=== PATIENT | male | born 1965 | race Caucasian/White ===

== ENCOUNTER 2019-12-24 15:23 | Emergency (ER) | payer SELFPAY ==
--- NOTE | 2019-12-24 15:35 | ED_ITS ---
Documented by User: ABDIEL Briseno 12/24/19 16:24 HPI - Back Pain/Injury General: Chief Complaint: Back Pain/Injury Stated Complaint: BACK PAIN Time Seen by Provider: 12/24/19 15:35 History of Present Illness: HPI Narrative: Patient is a 54-year-old male who comes in to the ED with thoracic back pain. Patient states that he is been having this pain for about 3 months now. It is becoming more acute is more severe. He states it's difficult to get comfortable in any position even when lying down. 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 He also stated that he had a fall from a 6-8 feet high several years ago. For that fall, patient states he landed on the middle of his back pain ever seek any medical attention after that injury. He describes the pain starting from the spine radiating up into the muscles to the left and right lateral thoracic spine and up the back muscles closer to. Patient also describes muscular pain around the thoracic spine tightness and spasms. Patient does not have a PCP would like a referral for 1. Associated symptoms: Deny abdominal pain, chills, dysuria, fatigue, fever(s), hematuria, nausea or vomiting Review of Systems Const: Denies: fever, chills or fatigue Eyes: Denies: change in vision or eye discomfort ENMT: Denies: throat pain, painful swallowing, nasal discharge or nasal congestion Card: Denies: chest pain, palpitations, edema, swelling of feet/ankles, shortness of breath on exertion or shortness of breath when lying down Resp: Denies: shortness of breath, productive cough or non-productive cough GI: Denies: abdominal pain, nausea, vomiting, diarrhea, constipation or blood in stool : Denies: flank pain, difficulty urinating, painful urination or blood in urine Musc: Reports: back pain; Denies: neck pain or extremity swelling Skin/Breast: Denies: rash or new lesion Neuro: Reports: numbness in extremities; Denies: headache or weakness in extremities PFS ED PFSH: Social History Smoking and tobacco status: current every day smoker Physical Exam Narrative: EXAM NARRATIVE: Patient is a 54-year-old male who appeared comfortable and in some pain in the room. He moved into multiple positions to help ease the back pain. Const: COMMON NORMALS: oriented x3 HENMT: COMMON NORMALS: normocephalic HEAD & SCALP: normocephalic MOUTH: oral and palatal mucosa normal THROAT: posterior oropharynx normal and uvula midline Neck/C-Spine: COMMON NORMALS: supple GENERAL: Yes normal visual inspection Resp: COMMON NORMALS: normal respiratory effort, no retractions, no use of accessory muscles and clear to auscultation bilaterally AUSCULTATION: clear to auscultation bilaterally Cardio: COMMON NORMALS: regular rate, regular rhythm, S1 normal heart sound, S2 normal heart sound, no gallops, no clicks, no murmurs and peripheral pulses 2+ throughout RATE: regular rate RHYTHM: regular rhythm HEART SOUNDS: S1 normal and S2 normal PERIPHERAL PULSES: pulses 2+ throughout GI: COMMON NORMALS: normal to inspection, nondistended, normoactive bowel sounds, soft to palpation, non-tender and no masses PALPATION: Yes soft : COMMON NORMALS: Yes no CVA tenderness BLADDER/KIDNEY EXAM: Yes no CVA tenderness Back/Pelvis: COMMON NORMALS: no CVA tenderness THORACIC SPINE/UPPER BACK: Yes thoracic spinal tenderness and Yes paraspinal muscle tenderness Extremity: COMMON NORMALS: normal to inspection Neuro: COMMON NORMALS: oriented x3 and moves all extremities Skin: COMMON NORMALS: no rashes or lesions noted GENERAL SKIN EXAM: no rashes or lesions noted and dry skin Course Vital Signs: Vital signs: Vital Signs Temperature 98.2 F 12/24/19 17:56 Pulse Rate 60 12/24/19 17:56 Respiratory Rate 18 12/24/19 17:56 Blood Pressure 122/78 12/24/19 17:56 Pulse Oximetry 98 12/24/19 17:56 Discharge Plan Discharge Patient Disposition: Home, Self-Care Clinical Impression: Thoracic back pain Qualifiers: Chronicity: chronic Back pain laterality: bilateral Qualified Code(s): M54.6 - Pain in thoracic spine Condition: Stable Prescriptions: New Robaxin-750 750 mg tablet 750 mg PO Q6H Qty: 20 RF: 0 ibuprofen 800 mg tablet 800 mg PO Q8H Qty: 30 RF: 0 Discharge Orders: Discharge Order (Routine); Ordered 12/24/19 Ordered By: Jorge Alberto Bauer Referrals: Kyler Killian, CURATOR OF EDUCATION-C [Primary Care Provider] - Discharge Diet: Regular Discharge Activity: Increase activity as tolerated Patient Instructions: Back Pain (ED) Activity Restrictions/Additional Instructions: I placed a referral for a primary care physician for you. Somebody should be calling you to set up an appointment within the next several days. Take Robaxin at night before bed to help with back pain and comfort while sleeping. Robaxin can make you drowsy so be careful when taking it. Take ibuprofen as prescribed. Discharge Date/Time: 12/24/19 17:50 Coding Level of Care Code ED Childhood Development Teacher for Chg Fwd Exam Detailed Documented by User: YOLANDA Ferrari 12/24/19 19:16 HPI - Back Pain/Injury General: Chief Complaint: Back Pain/Injury Stated Complaint: BACK PAIN Time Seen by Provider: 12/24/19 15:35 PFSH ED PFSH: Social History Smoking and tobacco status: current every day smoker Course Vital Signs: Vital signs: Vital Signs Temperature 98.2 F 12/24/19 17:56 Pulse Rate 60 12/24/19 17:56 Respiratory Rate 18 12/24/19 17:56 Blood Pressure 122/78 12/24/19 17:56 Pulse Oximetry 98 12/24/19 17:56 Discharge Plan Discharge Patient Disposition: Home, Self-Care Clinical Impression: Thoracic back pain Qualifiers: Chronicity: chronic Back pain laterality: bilateral Qualified Code(s): M54.6 - Pain in thoracic spine Condition: Stable Prescriptions: New Robaxin-750 750 mg tablet 750 mg PO Q6H Qty: 20 RF: 0 ibuprofen 800 mg tablet 800 mg PO Q8H Qty: 30 RF: 0 Discharge Orders: Discharge Order (Routine); Ordered 12/24/19 Ordered By: Jorge Alberto Bauer Referrals: Kyler Killian FNP-C [Primary Care Provider] - Discharge Diet: Regular Discharge Activity: Increase activity as tolerated Patient Instructions: Back Pain (ED) Activity Restrictions/Additional Instructions: I placed a referral for a primary care physician for you. Somebody should be calling you to set up an appointment within the next several days. Take Robaxin at night before bed to help with back pain and comfort while sleeping. Robaxin can make you drowsy so be careful when taking it. Take ibuprofen as prescribed. Discharge Date/Time: 12/24/19 17:50 Coding Level of Care Code ED Childhood Development Teacher for Go Fwcrystal Exam Detailed
[2019-12-24 15:41] VITALS: BP 136/81; PULSE 65; RESP 16; TEMP 36.4
[2019-12-24 15:42] VITALS: BP 136/81; PULSE 63; RESP 18; TEMP 36.4; O2SAT 98; BMI 21.2
--- NOTE | 2019-12-24 16:13 | CTR_ITS ---
PROCEDURE INFORMATION: Exam: CT Thoracic Spine Without Contrast Exam date and time: 12/24/2019 4:40 PM Age: 54 years old Clinical indication: Pain in thoracic spine; Additional info: Back pain, spinal tenderness TECHNIQUE: Imaging protocol: Computed tomography images of the thoracic spine without contrast. Total DLP: 929.6 mGy-cm Radiation optimization: All CT scans at this facility use at least one of these dose optimization techniques: automated exposure control; mA and/or kV adjustment per patient size (includes targeted exams where dose is matched to clinical indication); or iterative reconstruction. COMPARISON: No relevant prior studies available. FINDINGS: Vertebrae: Minimal rightward thoracic curvature. The vertebral body stature is normal. The facets are intact. Discs/Spinal canal/Neural foramina: The disc spaces are maintained. No spinal canal stenosis. Soft tissues: Unremarkable. CT/CT thoracic spin wo con* [id number] IMPRESSION: No acute findings. Radiation Dose CTDIVOL = (mGy): DLP = 929.6 (mGy-cm)
[2019-12-24] MEDS: ketorolac 60 mg/2 mL INJ IM (16:20)
[2019-12-24] MEDS: orphenadrine 30 mg/mL Inj 2 mL 60 MG IM (16:22)
--- NOTE | 2019-12-24 16:50 | PC.NURSE ---
During medication adm, pt states he has a rash on his neck that won't go away gradual onset since last summer that has not been evaluated by a practitioner with no relief from OTC meds. PA notified
[2019-12-24 17:56] VITALS: BP 122/78; PULSE 60; RESP 18; TEMP 36.8; O2SAT 98
--- NOTE | 2019-12-27 14:11 | DCPLANNER ---
manager scheduling had message to speak with patient about getting established with a primary care physician. manager scheduling called patient, and he stated that he did want help in getting established with a primary care physician. manager scheduling called [facility], spoke with Isha, patient was established and a follow up appointment was scheduled for , January 04, 2020 at 9:00 with KITCHEN PORTER, Usha Darby. manager scheduling called patient and informed patient of the scheduled appointment.
--- NOTE | 2020-01-17 15:37 | DCPLANNER ---
Patient did attend appointment scheduled for 01.04.20 at [facility] [place] with
== END 2019-12-24 17:50 | disposition home or self-care (01) ==
PROVIDERS: Emergency Provider Nurse Practitioner Family; Family Provider Nurse Practitioner; PCP Nurse Practitioner
DX: M54.6 Pain in thoracic spine (principal); F17.200 Nicotine dependence, unspecified, uncomplicated
CPT/HCPCS: 72128; 96372; 99281; 99283; J1885; J2360

== ENCOUNTER 2020-09-19 10:05 | Outpatient (CLI) | payer OTHER, SELFPAY ==
--- NOTE | 2020-09-19 10:45 | XR_ITS ---
WS: [id number] Lumbar spine, 3 views, 09/19/2020 Clinical Data: LUMBAR SPINE PAIN Comparison: None. Findings: No compression fractures or subluxation is seen. There is degenerative disc narrowing at its L5-S1.. The transverse processes and SI joints are normal. Anterior osteophyte formation is present from L3 through L5. XR/XR lumbar spine 2-3V* [id number] Impression: 1. Degenerative disc narrowing at L5-S1. 2. Anterior osteoarthritic spurring L3-L5.
--- NOTE | 2020-09-19 10:45 | XR_ITS ---
WS: [id number] Cervical spine, 3 views, 09/19/2020 Clinical Data: NECK PAIN Comparison: None. Findings: No compression fractures are seen. The disc heights are normal. There is no prevertebral so ft tissue swelling. The odontoid is unremarkable. The soft tissues of the neck and the lung apices ar e normal. There are calcifications of the anterior longitudinal ligament at C5-C6 and C6-C7. XR/XR cervical spine 3V* [id number] Impression: Minimal anterior longitudinal ligament calcifications at C5-C6 and C6-C7.
== END 2020-09-19 10:06 | disposition home or self-care (01) ==
PROVIDERS: PCP Nurse Practitioner; Visit Provider Dermatology
DX: M54.2 Cervicalgia (principal); M54.5 Low back pain
CPT/HCPCS: 72040; 72100

== ENCOUNTER 2021-02-19 08:34 | Emergency (ER) | payer MEDICAID, SELFPAY ==
[2021-02-19 08:38] VITALS: BP 152/83; PULSE 76; RESP 18; TEMP 36.7; O2SAT 97; BMI 22.8
[2021-02-19 08:47] VITALS: BP 152/83; PULSE 90; RESP 18; O2SAT 98
--- NOTE | 2021-02-19 08:47 | XR_ITS ---
WS: [id number] Portable AP upright chest, 02/19/2021 Clinical Data: cough Comparison: PA and lateral chest, 10/09/2016. Findings: The patchy opacity in the lingula has cleared. No nodules, masses or effusions are seen. Th ere is no pneumonia or pneumothorax. The pulmonary vascularity is unremarkable. The diaphragms are fl attened. XR/XR chest 1V portable [id number] Impression: 1. Clearing of lingular opacity. 2. Hyperinflation.
--- NOTE | 2021-02-19 08:53 | ED_ITS ---
HPI - URI/Sore Throat General: Chief Complaint: Upper Respiratory Infection Stated Complaint: SINUS PAIN Time Seen by Provider: 02/19/21 08:45 History of Present Illness: HPI Narrative: Patient comes here complain about allergy type symptoms. Said he had a sore throat for 2 3 days and has a cough also. Patient said he has had watery eyes scratchy roof of the mouth ears itching for the last week. Not seen his primary care provider yet. MD elicited complaint: cough, sore throat, rhinorrhea and nasal congestion Pertinent past history: seasonal allergies Onset (ago): day(s) Consistency: constant Description of mucous: watery Able to tolerate fluids by mouth: Yes Exacerbating factors: nothing Associated symptoms: Reports no associated symptoms; Deny abdominal pain, chills, chest pain, fever(s), headache(s), nasal congestion, nausea or vomiting Review of Systems Const: Denies: fever(s), chills or body aches Eyes: Reports: increased production of tears; Denies: change in vision or blurry vision ENMT: Reports: throat pain and other (Itchy throat and roof of mouth); Denies: nasal congestion Card: Denies: chest pain or dyspnea on exertion Resp: Reports: non-productive cough; Denies: dyspnea or productive cough GI: Denies: abdominal pain, nausea or vomiting : Denies: difficulty urinating Musc: Denies: extremity pain Skin/Breast: Denies: rash Neuro: Denies: headache(s) Psych: Denies: anxiety or depression Jey/Lymph: Denies: easy bruising PFSH ED PFSH: Social History Smoking and tobacco status: current every day smoker cigarettes Packs smoked per day: 1 Alcohol intake: never History of recent travel: No Physical Exam Const: COMMON NORMALS: no acute distress, average body habitus and patient oriented x3 HENMT: COMMON NORMALS: normocephalic and TM's normal bilaterally HEAD & SCALP: normal to inspection and normocephalic FACE & SINUS: normal facial exam TYMPANIC MEMBRANE: TM's normal bilaterally MOUTH: Normal oral and palatal mucosa present THROAT: posterior oropharynx abnormal (Slightly red) Eye: COMMON NORMALS: conjunctivae normal GENERAL EYE: appearance normal, both eyes and all related structures CONJUNCTIVA: Yes conjunctivae normal Neck/C-Spine: COMMON NORMALS: no JVD Chest: COMMONS NORMALS: normal inspection of the chest Resp: COMMON NORMALS: normal respiratory effort and clear to auscultation b ilaterally AUSCULTATION: clear to auscultation bilaterally Cardio: COMMON NORMALS: no JVD, regular rate and regular rhythm RATE: regular rate RHYTHM: regular rhythm GI: COMMON NORMALS: Normal to inspection, nondistended, normoactive bowel sounds present Extremity: COMMON NORMALS: normal to inspection and full ROM Neuro: COMMON NORMALS: patient oriented x3 Course Vital Signs: Vital signs: Vital Signs Temperature 98.0 F 02/19/21 08:38 Pulse Rate 90 02/19/21 08:47 Respiratory Rate 18 02/19/21 08:47 Blood Pressure 152/83 02/19/21 08:47 Pulse Oximetry 98 02/19/21 08:47 Discharge Plan Discharge Prescriptions: No Action ibuprofen 800 mg tablet 800 mg PO Q8H Qty: 90 RF: 0 methylprednisolone [Medrol (Ezra)] 4 mg tablets,dose pack See Rx Instructions PO PER PKG DIR Qty: 21 RF: 0 Robaxin-750 750 mg tablet 750 mg PO Q6H Qty: 20 RF: 0 Coding Level of Care Code ED Badger Distiller Operator for Chg Abrahan
[2021-02-19] MEDS: predniSONE 10 mg Tablet PO (09:11)
[2021-02-19] MEDS: loratadine 10 mg Tablet PO (09:16)
[2021-02-19 09:55] LABS: Rapid Strep A Test Negative (Negative)
[2021-02-19 10:24] VITALS: BP 135/78; PULSE 98; O2SAT 97
== END 2021-02-19 10:25 | disposition home or self-care (01) ==
PROVIDERS: Emergency Provider Nurse Practitioner Family
DX: J02.9 Acute pharyngitis, unspecified (principal); F17.210 Nicotine dependence, cigarettes, uncomplicated
CPT/HCPCS: 71045; 87081; 87880; 99283; J7512

== ENCOUNTER 2021-02-27 17:15 | Outpatient (CLI) | payer MEDICAID, SELFPAY ==
--- NOTE | 2021-02-27 18:10 | MR_ITS ---
WS: [id number] MRI THORACIC SPINE WITHOUT CONTRAST TECHNIQUE: Sagittal T1, T2 and STIR imaging. Axial T2 imaging. Noncontrast imaging obtained. CLINICAL INFORMATION: CHRONIC BILATERAL THORACIC BACK PAIN COMPARISON: CT December 24, 2019 FINDINGS: Mild thoracic curve. No acute compression. No high-grade central canal stenosis. Cord signal is abdon l. Mild to moderate facet arthropathy in the lower thoracic spine. Mild bilateral foraminal narrowing T10-T11 and T11-T12. Normal caliber thoracic aorta. Adrenal glands are normal. MR/MR thoracic spin wo con* [id number] IMPRESSION: 1. Mild thoracic curve. No acute compression. No high-grade central canal sten osis. 2. Cord signal is normal. 3. Mild to moderate facet arthropathy in the lower thoracic spine. 4. Mild bilateral foraminal narrowing T10-11 and T11-T12.
== END 2021-02-27 17:16 | disposition home or self-care (01) ==
LOC: RADSHAW 17:19
PROVIDERS: Visit Provider Family Medicine
DX: M47.814 Spondylosis without myelopathy or radiculopathy, thoracic region (principal)
CPT/HCPCS: 72146

== ENCOUNTER → 2021-03-17 08:26 | Outpatient (BNVA) | payer MEDICAID, SELFPAY | PROVIDERS: PCP Physician Assistant; Referring Provider Family Medicine; Visit Provider Anesthesiology Pain Medicine | DX: G89.29 Other chronic pain (principal); M47.814 Spondylosis without myelopathy or radiculopathy, thoracic region; F17.210 Nicotine dependence, cigarettes, uncomplicated | CPT/HCPCS: 99205 ==

== ENCOUNTER → 2021-04-21 08:26 | Outpatient (BNVA) | payer MEDICAID, SELFPAY | PROVIDERS: PCP Physician Assistant; Visit Provider Anesthesiology Pain Medicine | DX: G89.29 Other chronic pain (principal); M47.814 Spondylosis without myelopathy or radiculopathy, thoracic region | CPT/HCPCS: 99214 ==

== ENCOUNTER → 2021-05-19 09:57 | Outpatient (BNVA) | payer MEDICAID, SELFPAY | PROVIDERS: PCP Physician Assistant; Visit Provider Anesthesiology Pain Medicine | DX: G89.29 Other chronic pain (principal); M54.12 Radiculopathy, cervical region; M47.814 Spondylosis without myelopathy or radiculopathy, thoracic region; R42 Dizziness and giddiness; F17.210 Nicotine dependence, cigarettes, uncomplicated; Z79.891 Long term (current) use of opiate analgesic | CPT/HCPCS: 99214 ==

== ENCOUNTER 2021-06-16 16:16 | Outpatient (CLI) | payer MEDICAID, SELFPAY ==
--- NOTE | 2021-06-16 16:45 | MR_ITS ---
WS: [id number] MRI CERVICAL SPINE NONCONTRAST TECHNIQUE: Sagittal T1, T2 and STIR imaging. Axial T2, gradient, and fiesta imaging. CLINICAL INFORMATION: M54.12 - Radiculopathy, cervical region COMPARISON: None. FINDINGS: Slight exaggeration of the normal cervical lordosis. No high-grade central canal narrowing. Cord sign al is normal. Mild disc osteophyte complexes at C5-C6 and C6-C7. C2-C3: Normal. C3-C4: Mild disc bulging and osteophytic ridging. Mild left and no significant right foraminal narrow ing. Spinal canal is patent. Mild facet arthropathy. C4-C5: Mild disc osteophyte complex with endplate ridging. Moderate left greater than right facet art hropathy. Mild periarticular edema. Moderate bilateral foraminal narrowing left greater than right. C5-C6: Disc osteophyte complex with endplate ridging. Moderate facet arthropathy. Spinal canal is pat ent. Mild left and no significant right foraminal narrowing. C6-C7: Disc osteophyte complex eccentric to the left with mild central canal stenosis. Moderate to se jennifer left and mild to moderate right bony foraminal narrowing. Moderate facet arthropathy. C7-T1: No significant disc bulging. Spinal canal and foramen are patent. Retention cyst right maxillary sinus measuring 2.5 cm. Visualized brain stem structures: Normal. Prevertebral soft tissues: Normal. MR/MR cervical spin wo con* [id number] IMPRESSION: 1. Slight exaggeration of the normal cervical lordosis. Cord signal is normal. 2. Left eccentric disc osteophyte complex C6-7 with mild central canal stenosi s and moderate to severe left bony foraminal narrowing. Recommend correlation f or left C7 nerve root symptoms. 3. Mild to moderate bony foraminal narrowing left C4-5, left C5-6. 4. Asymmetric moderate left C4-5 facet arthropathy with degenerative edema.
== END 2021-06-16 16:17 | disposition home or self-care (01) ==
LOC: RADSHAW 16:19
PROVIDERS: PCP Physician Assistant; Visit Provider Anesthesiology Pain Medicine
DX: M54.12 Radiculopathy, cervical region (principal); M47.812 Spondylosis without myelopathy or radiculopathy, cervical region; M25.78 Osteophyte, vertebrae
CPT/HCPCS: 72141

== ENCOUNTER → 2021-07-02 09:06 | Outpatient (BNVA) | payer MEDICAID, SELFPAY | PROVIDERS: PCP Physician Assistant; Visit Provider Anesthesiology Pain Medicine | DX: G89.29 Other chronic pain (principal); M47.814 Spondylosis without myelopathy or radiculopathy, thoracic region | CPT/HCPCS: 99214 ==

== ENCOUNTER → 2021-09-02 13:25 | Outpatient (BNVA) | payer MEDICAID, SELFPAY | PROVIDERS: PCP Physician Assistant; Visit Provider Anesthesiology Pain Medicine | DX: G89.29 Other chronic pain (principal); M47.814 Spondylosis without myelopathy or radiculopathy, thoracic region; M54.50 Low back pain, unspecified; M54.2 Cervicalgia | CPT/HCPCS: 99213 ==

== ENCOUNTER 2022-07-12 10:36 | Emergency (ER) | payer MEDICARE, MEDICAID, SELFPAY ==
[2022-07-12 11:36] VITALS: BP 133/73; PULSE 66; RESP 18; TEMP 36.1; O2SAT 98; BMI 23.6
--- NOTE | 2022-07-12 11:43 | ED_ITS ---
HPI - Eye Problem General: Chief complaint: Eye Problems Stated complaint: Vision problems Time Seen by Provider: 07/12/22 11:39 History of Present Illness: 56 yo male patient presents with bilateral eye matting and crusting. Pt states he woke up this am with crusting and matting to his eyelids. Pt denies any vision changes or eye pain. Pt states it doesnt hurt it just was matted and was worried he has pink eye. Pt denies any fever. Associated symptoms: Denies fever(s), headache(s), nausea, neck pain or vomiting Review of Systems Const: Denies: fever(s), chills, body aches, change in appetite, change in weight, fatigue, malaise or diaphoresis Eyes: Reports: eye discharge; Denies: change in vision, blurry vision, blind spots, photophobia, eye discomfort, eye redness, floaters or seeing flashes ENMT: Denies: throat pain, uvular edema, enlarged tonsils, odynophagia, hoarseness, mouth pain, swelling of lips/tongue, oral sores, bleeding gums, dental pain, dry mouth, ear or mastoid pain, ear discharge, change in hearing, tinnitus, disequilibrium, nasal discharge, nasal congestion, post nasal drip or sinus pain Card: Denies: chest pain, palpitations, irregular heart rhythm, edema, swelling of feet/ankles, lightheadedness, syncope, pre-syncope, dyspnea on exertion, orthopnea, leg pain with exertion or acrocyanosis Resp: Denies: dyspnea, productive cough, non-productive cough, wheezing, stridor, pain on inspiration, change in phlegm color, hemoptysis or chest congestion GI: Denies: abdominal pain, nausea, vomiting, hematemesis, dysphagia, diarrhea, constipation, GI cramping, change in bowel habits or rectal pain : Denies: flank pain, dysuria, urinary frequency, urinary urgency, urinary hesitancy or hematuria Musc: Denies: neck pain, back pain, extremity pain, extremity swelling, joint pain, joint swelling, joint redness, joint warmth or deformity Skin/Breast: Denies: rash, pruritus, erythema, sores, new lesions, changes in skin color or dry skin Neuro: Denies: headache(s), numbness in extremities, weakness in extremities, sensory changes, lack of coordination, difficulty walking, frequent falls, dizziness, vertigo, confusion, behavioral changes, Slurred speech present, difficulty communicating thoughts or seizure-like activity Psych: Denies: anxiety, depression, suicidal ideation or homicidal ideation Endo: Denies: polyuria, polydipsia, tired all the time, cold intolerance, excessive sweating, flushing, hot flashes or heat intolerance Jey/Lymph: Denies: easy bruising, easy bleeding, petechiae, purpura, enlarged lymph nodes or tender lymph nodes All/Imm: Denies: urticaria, throat swelling, tongue swelling, facial swelling, acute wheezing or itchy eyes PFSH ED PFSH: Social History Alcohol intake: never History of recent travel: No Physical Exam Const: COMMON NORMALS: no acute distress, average body habitus, patient oriented x3, no limitations, healthy appearing, alert and well nourished HENMT: THROAT: no uvular edema Eye: COMMON NORMALS: Equal, round and reactive pupils present, EOMs intact bilaterally, no scleral icterus, no papilledema and normal visual ortega by confrontation EYELID: other (crusting noted to bilateral lower lids) CONJUNCTIVA: Yes conjunctival abnormal (injected bilateral) PUPIL: Yes Equal, round and reactive pupils present DIRECT OPHTHALMOSCOPY: Yes no papilledema Lymph: LYMPHATIC: no lymphadenopathy noted and no lymphedema noted Resp: COMMON NORMALS: normal respiratory effort, No retractions, No use of accessory muscles, clear to auscultation bilaterally and percussion normal AUSCULTATION: clear to auscultation bilaterally PERCUSSION: percussion normal Cardio: COMMON NORMALS: regular rate and regular rhythm RATE: regular rate RHYTHM: regular rhythm Neuro: COMMON NORMALS: patient oriented x3, CN's II-XII intact bilaterally, moves all extremities, no focal motor deficits, no sensory deficits noted and gait normal SENSORIUM/ORIENTATION: Yes alert Skin: COMMON NORMALS: no rashes or lesions noted, no wounds, turgor normal, no jaundice, no petechiae and no mottling GENERAL SKIN EXAM: no rashes or lesions noted and turgor normal Course Vital Signs: Vital signs: Vital Signs Temperature 96.9 F L 07/12/22 11:36 Pulse Rate 66 09/04/22 11:36 Respiratory Rate 18 07/12/22 11:36 Blood Pressure 133/73 07/12/22 11:36 Pulse Oximetry 98 07/12/22 11:36 Oxygen Delivery Me thod 07/12/22 11:36 MDM - Eye Problem Medical Decision Making Patient is well appearing non toxic and in no acute distress. 56 yo male patient presents with bilateral eye matting and crusting. Pt states he woke up this am with crusting and matting to his eyelids. Pt denies any vision changes or eye pain. Pt states it doesnt hurt it just was matted and was worried he has pink eye. Pt denies any fever. Patient's findings are c/w conjunctivitis. Pt has no pain or vision changes or headaches. Pt does not feel like he has anything in his eyes. Will start on erythromycin ointment and have follow up with Opthamology. Differential Diagnosis Likely corneal abrasion, conjunctivitis, acute iritis, hyphema, periorbital cellulitis, subconjunctival hemorrhage, glaucoma, corneal ulcer and ruptured globe Discharge Plan Discharge Patient Disposition: Home Clinical Impression: Bacterial conjunctivitis Condition: Stable Prescriptions: New erythromycin 5 mg/gram (0.5 %) ointment 1 applic ophthalmic (eye) TID 7 Days Qty: 3.5 0RF No Action cyclobenzaprine 10 mg tablet 10 mg PO BID Qty: 60 0RF meloxicam 15 mg tablet 15 mg PO DAILY Qty: 30 0RF gabapentin 300 mg capsule 300 mg PO TID Qty: 90 0RF Claritin 10 mg tablet 10 mg PO DAILY Qty: 20 0RF Discharge Orders: Discharge ED (Routine); Ordered 07/12/22 Ordered By: Olena Gallardo Discharge Diet: Advance as tolerated Discharge Activity: Resume usual activity Patient Instructions: Opioid Safety Activity Restrictions/Additional Instructions: Plesae follow up with Opthlamology tomorrow. We will call you with appointment info Return to ER with any worsening of symptoms such as vision changes, headaches or any other concerns Coding Level of Care Code ED Torch Straightener And Heater for Go Gauthier
== END 2022-07-12 11:55 | disposition home or self-care (01) ==
PROVIDERS: Emergency Provider Registered Nurse
DX: H10.9 Unspecified conjunctivitis (principal)
CPT/HCPCS: 99283

== ENCOUNTER → 2022-12-22 09:36 | Outpatient (BNVA) | payer MEDICARE, MEDICAID, SELFPAY | PROVIDERS: Visit Provider Anesthesiology Pain Medicine | DX: G89.29 Other chronic pain (principal); M47.814 Spondylosis without myelopathy or radiculopathy, thoracic region; M47.812 Spondylosis without myelopathy or radiculopathy, cervical region | CPT/HCPCS: 72050; 72072; 99214 ==

== ENCOUNTER → 2023-01-06 17:01 | Outpatient (BNVA) | payer MEDICARE, MEDICAID, SELFPAY | PROVIDERS: PCP Family Medicine; Visit Provider Nurse Practitioner Family | DX: R63.4 Abnormal weight loss (principal) | CPT/HCPCS: 80053; 82607; 83735; 84443; 85025 ==

== ENCOUNTER 2023-01-25 07:39 | Outpatient (CLI) | payer MEDICARE, MEDICAID, SELFPAY ==
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
[2023-01-25] MEDS: iohexol 350 mg/mL 500 mL Btl (per mL) IV (09:48)
== END 2023-01-25 07:40 | disposition home or self-care (01) ==
PROVIDERS: Visit Provider Nurse Practitioner Family
DX: R63.4 Abnormal weight loss (principal)
CPT/HCPCS: 71260; 74177; Q9967

== ENCOUNTER → 2023-02-03 08:39 | Outpatient (BNVA) | payer MEDICARE, MEDICAID, SELFPAY | PROVIDERS: Visit Provider Anesthesiology Pain Medicine | DX: G89.29 Other chronic pain (principal); M54.2 Cervicalgia; M47.814 Spondylosis without myelopathy or radiculopathy, thoracic region; M79.641 Pain in right hand; M79.642 Pain in left hand | CPT/HCPCS: 99215 ==

== ENCOUNTER → 2023-03-31 14:55 | Outpatient (BNVA) | payer MEDICARE, MEDICAID, SELFPAY | PROVIDERS: Visit Provider Nurse Practitioner | DX: Z20.2 Contact with and (suspected) exposure to infections with a predominantly sexual mode of transmission (principal) | CPT/HCPCS: 87491; 87591 ==

== ENCOUNTER 2023-05-27 20:01 | Emergency (ER) | payer MEDICARE, MEDICAID, SELFPAY ==
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
[2023-05-27 20:02] VITALS: BMI 22.2
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
[2023-05-27] MEDS: iohexol 350 mg/mL 500 mL Btl (per mL) IV (20:39)
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
[2023-05-27 21:08] VITALS: BP 145/83; PULSE 86; O2SAT 98
[2023-05-27 21:18] LABS: Basophils # 0.1 10^3/uL (0.0-0.1); Basophils % 0.8 %; Eosinophils # 0.3 10^3/uL (0.0-0.8); Eosinophils % 2.8 %; Hematocrit 45.2 % (42.0-52.0); Hemoglobin 14.3 g/dL (11.7-16.6); Lymphocytes # 7.2 10^3/uL (0.8-4.8); Lymphocytes % 62.7 %; Mean Corpuscular HGB Conc 31.6 g/dL (30.0-36.0); Mean Corpuscular Hemoglobin 28.7 pg (28.0-34.0); Mean Corpuscular Volume 90.6 fl (80-94); Mean Platelet Volume 9.5 fL (7.4-10.4); Monocytes # 0.6 10^3/uL (0.2-0.9); Monocytes % 5.5 %; Nucleated Red Blood Cells % 0 %; Platelet Count 247 10^3/cmm (130-400); Red Blood Count 4.99 10^6/uL (4.1-5.3); Red Cell Distribution Width 14.2 % (12.1-15.1); White Blood Count 11.4 10^3/uL (4.0-10.0)
[2023-05-27] MEDS: tetanus-dipt-pertussis 0.5 mL SDV IM (21:18)
[2023-05-27] MEDS: lidocaine 1% INJ 10 mL (per mL) 20 ML XX (21:18)
--- NOTE | 2023-05-27 21:19 | PC.NURSE ---
LIDOCAINE ADMINISTERED BY DR. DYKES.
[2023-05-27 21:29] LABS: Alcohol Level 227 mg/dL (0-10); Anion Gap 18.7 (5-19); Blood Urea Nitrogen 10 mg/dL (6-20); Calcium 8.6 mg/dL (8.5-10.5); Carbon Dioxide 22 mmol/L (22-29); Chloride 108 mmol/L (98-107); Glomerular Filtration Rate 99.3 mL/min (90-130); Glucose 139 mg/dL (65-115); Osmolality Calculated 301 mOsm/kg (285-295); Potassium 3.7 mmol/L (3.5-5.1); Sodium 145 mmol/L (136-145)
[2023-05-27 21:30] VITALS: BP 131/79; PULSE 77; O2SAT 94
[2023-05-27 22:00] VITALS: BP 141/87; PULSE 88; O2SAT 98
[2023-05-27 23:00] VITALS: BP 160/89; PULSE 69; O2SAT 97
[2023-05-27 23:30] VITALS: BP 141/95; PULSE 84; O2SAT 94
[2023-05-28 00:51] VITALS: BP 144/93; PULSE 88; O2SAT 95
[2023-05-28 01:19] VITALS: PULSE 97; RESP 16; O2SAT 98
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
== END 2023-05-28 01:20 | disposition home or self-care (01) ==
PROVIDERS: Emergency Provider Family Medicine; PCP Nurse Practitioner Family
DX: S01.111A Laceration without foreign body of right eyelid and periocular area, initial encounter (principal); S01.81XA Laceration without foreign body of other part of head, initial encounter; S01.411A Laceration without foreign body of right cheek and temporomandibular area, initial encounter; S02.40CA Maxillary fracture, right side, initial encounter for closed fracture; S02.40DA Maxillary fracture, left side, initial encounter for closed fracture; S02.32XA Fracture of orbital floor, left side, initial encounter for closed fracture; S02.2XXA Fracture of nasal bones, initial encounter for closed fracture; F10.129 Alcohol abuse with intoxication, unspecified; Y90.7 Blood alcohol level of 200-239 mg/100 ml; F17.210 Nicotine dependence, cigarettes, uncomplicated; Y04.8XXA Assault by other bodily force, initial encounter; Z23 Encounter for immunization
CPT/HCPCS: 12015; 70450; 70486; 71260; 72125; 74177; 80048; 80307; 85025; 90471; 90715; 99285; Q9967

== ENCOUNTER → 2023-06-02 12:41 | Outpatient (BNVA) | payer MEDICARE, MEDICAID, SELFPAY | PROVIDERS: Visit Provider Otolaryngology | DX: S00.83XA Contusion of other part of head, initial encounter; S02.2XXA Fracture of nasal bones, initial encounter for closed fracture; J34.2 Deviated nasal septum; S02.40DA Maxillary fracture, left side, initial encounter for closed fracture; S02.40CA Maxillary fracture, right side, initial encounter for closed fracture; S02.31XA Fracture of orbital floor, right side, initial encounter for closed fracture; S02.32XA Fracture of orbital floor, left side, initial encounter for closed fracture; Y04.8XXA Assault by other bodily force, initial encounter | CPT/HCPCS: 99205 ==

== ENCOUNTER → 2023-06-07 10:36 | Outpatient (BNVA) | payer MEDICARE, MEDICAID, SELFPAY | PROVIDERS: Visit Provider Otolaryngology | DX: J34.2 Deviated nasal septum; F07.81 Postconcussional syndrome; S02.31XA Fracture of orbital floor, right side, initial encounter for closed fracture; S02.32XA Fracture of orbital floor, left side, initial encounter for closed fracture; S02.40DA Maxillary fracture, left side, initial encounter for closed fracture; S02.40CA Maxillary fracture, right side, initial encounter for closed fracture; S02.2XXA Fracture of nasal bones, initial encounter for closed fracture; Y04.8XXA Assault by other bodily force, initial encounter | CPT/HCPCS: 99213 ==

== ENCOUNTER → 2023-06-23 10:31 | Outpatient (BNVA) | payer MEDICARE, MEDICAID, SELFPAY | PROVIDERS: PCP Obstetrics & Gynecology; Visit Provider Psychiatry & Neurology Neurology | DX: F07.81 Postconcussional syndrome; S09.90XS Unspecified injury of head, sequela; G44.309 Post-traumatic headache, unspecified, not intractable; R42 Dizziness and giddiness; Y04.8XXS Assault by other bodily force, sequela | CPT/HCPCS: 99203 ==

== ENCOUNTER 2023-06-30 09:31 | Outpatient (CLI) | payer MEDICARE, MEDICAID, SELFPAY ==
--- NOTE | 2023-06-30 10:15 | MR_ITS ---
WS: [id number] MRI BRAIN WITH AND WITHOUT CONTRAST HISTORY: S09.90XA - Unspecified injury of head, initial encounter COMPARISON: Noncontrast CT head 05/27/2023 TECHNIQUE: Multiplanar imaging performed through the brain with MultiHance 15 ml's IV. No acute infarcts are seen. Pollard-white matter differentiation is well preserved. No susceptibility artifacts or prior lacunar infarcts. Ventricles and extra-axial spaces are normal. Clivus and pituitary gland are normal. Visualized posterior fossa and brainstem are also normal. Postcontrast images are negative for masses or vascular malformations. Dural venous sinuses are normal. Paranasal sinuses: Mild mucoperiosteal thickening throughout the paranasal sinuses. Most significant disease in the RIGHT maxillary sinus. Mastoid air cells: Bilateral mastoid air cell effusions. Calvarium and scalp: Normal. IMPRESSION: 1. Normal MRI brain with contrast. 2. No acute intracranial hemorrhage or edema. No prior infarct. No significant microvascular disease . 3. Bilateral mastoid air cell effusions.
== END 2023-06-30 09:32 | disposition home or self-care (01) ==
LOC: RAD 09:32
PROVIDERS: PCP Obstetrics & Gynecology; Visit Provider Specialist
DX: S09.90XA Unspecified injury of head, initial encounter (principal); X58.XXXA Exposure to other specified factors, initial encounter
CPT/HCPCS: 70553; A9577

== ENCOUNTER 2023-07-02 08:45 | Outpatient (CLI) | payer MEDICARE, MEDICAID, SELFPAY ==
--- NOTE | 2023-07-02 08:30 | USCV_ITS ---
Parag Darby Age: 57 Gender: M : 1965 Exam Date: 07/02/2023 09:02 Ordering Phys: Cris Metcalf MD Technologist: JAYLEN [place] [facility] [place]: [place] TRAUMA, DIZZINESS Risk Factors: Previous Vascular Surgery: Right Brachial BP: / Left Brachial BP: / Right Left Velocity (cm/s) Spectral Plaque Velocity (cm/s) Spectral Plaque Syst/Diast Broadening Syst/Diast Broadening 80.00/ 14.00 Prox CCA 126.20/ 21.00 110.20/23.10 Mid CCA 92.60 / 22.10 76.90/ 25.60 Distal CCA 78.30 / 24.30 55.20/ 17.10 Prox ICA 48.50 / 13.50 67.50/ 24.60 Mid ICA 62.80 / 22.50 74.90/ 31.60 Distal ICA 77.30 / 28.40 61.80 ECA 94.80 0.68 ICA/CCA 0.61 Antegrade Vertebral Antegrade 35.70/ 10.90 cm/s 41.20/ 16.30 cm/s Tri Subclavian Tri 75.50 80.00 CONCLUSIONS Right ICA stenosis <50%. Mild atheromatous plaque right carotid bulb/ICA. Left ICA stenosis <50%. Mild atheromatous plaque left carotid bulb/ICA. Normal antegrade Doppler flow noted in the right vertebral artery. Normal antegrade Doppler flow noted in the left vertebral artery. Carlin Irwin MD (Electronically Signed) Final Date: 02 July 2023 11:02 S
== END 2023-07-02 08:46 | disposition home or self-care (01) ==
PROVIDERS: PCP Obstetrics & Gynecology; Visit Provider Specialist
DX: S09.90XA Unspecified injury of head, initial encounter (principal); X58.XXXA Exposure to other specified factors, initial encounter; R42 Dizziness and giddiness; I65.21 Occlusion and stenosis of right carotid artery; I65.22 Occlusion and stenosis of left carotid artery
CPT/HCPCS: 93880

== ENCOUNTER 2023-07-07 13:08 | Outpatient (RCR) | payer MEDICARE, MEDICAID, SELFPAY | END 2023-07-08 23:59 | disposition home or self-care (01) | LOC: SPT 13:08 | PROVIDERS: PCP Obstetrics & Gynecology; Visit Provider Family Medicine | DX: H81.13 Benign paroxysmal vertigo, bilateral (principal) | CPT/HCPCS: 95992; 97161 ==

== ENCOUNTER 2023-07-09 06:00 | Outpatient (RCR) | payer MEDICARE, MEDICAID, SELFPAY | END 2023-08-07 23:59 | disposition home or self-care (01) | LOC: SPT 06:00 | PROVIDERS: PCP Obstetrics & Gynecology; Visit Provider Family Medicine | DX: H81.13 Benign paroxysmal vertigo, bilateral (principal) | CPT/HCPCS: 95992 ==

== ENCOUNTER → 2024-01-11 11:13 | Outpatient (BNVA) | payer MEDICARE, MEDICAID, SELFPAY | PROVIDERS: PCP Nurse Practitioner Family; Visit Provider Nurse Practitioner Family | DX: L60.8 Other nail disorders; E55.9 Vitamin D deficiency, unspecified; R73.9 Hyperglycemia, unspecified | CPT/HCPCS: 80053; 82306; 82607; 83036; 83735; 84443; 85025 ==

== ENCOUNTER → 2024-02-07 16:22 | Outpatient (BNVA) | payer MEDICARE, MEDICAID, SELFPAY | PROVIDERS: PCP Nurse Practitioner Family; Visit Provider Family Medicine | DX: Z20.2 Contact with and (suspected) exposure to infections with a predominantly sexual mode of transmission (principal) | CPT/HCPCS: 87491; 87591 ==

== ENCOUNTER 2024-05-26 06:00 | Outpatient (RCR) | payer MEDICARE, MEDICAID, SELFPAY | END 2024-06-07 23:59 | disposition home or self-care (01) | LOC: TPT 06:00 | PROVIDERS: Visit Provider Nurse Practitioner Family | DX: M54.50 Low back pain, unspecified (principal); G89.29 Other chronic pain | CPT/HCPCS: 97110; 97162 ==

== ENCOUNTER 2024-06-08 06:00 | Outpatient (RCR) | payer MEDICARE, MEDICAID, SELFPAY | END 2024-07-08 23:59 | disposition home or self-care (01) | LOC: TPT 06:00 | PROVIDERS: Visit Provider Nurse Practitioner Family | DX: M54.50 Low back pain, unspecified (principal); G89.29 Other chronic pain | CPT/HCPCS: 97110 ==

== ENCOUNTER 2024-07-09 06:00 | Outpatient (RCR) | payer MEDICARE, MEDICAID, SELFPAY | END 2024-08-07 23:59 | disposition home or self-care (01) | LOC: TPT 06:00 | PROVIDERS: Visit Provider Nurse Practitioner Family | DX: M54.50 Low back pain, unspecified (principal); G89.29 Other chronic pain | CPT/HCPCS: 97110 ==

== ENCOUNTER 2024-08-08 06:00 | Outpatient (RCR) | payer MEDICARE, MEDICAID, SELFPAY | END 2024-09-07 23:59 | disposition home or self-care (01) | LOC: TPT 06:00 | PROVIDERS: Visit Provider Nurse Practitioner Family | DX: M54.50 Low back pain, unspecified (principal); G89.29 Other chronic pain | CPT/HCPCS: 97110 ==

== ENCOUNTER 2024-10-04 06:00 | Outpatient (RCR) | payer MEDICARE, MEDICAID, SELFPAY | END 2024-10-07 23:59 | disposition home or self-care (01) | LOC: TPT 06:00 | PROVIDERS: Visit Provider Nurse Practitioner Family | DX: M54.50 Low back pain, unspecified (principal); G89.29 Other chronic pain | CPT/HCPCS: 97164 ==

== ENCOUNTER 2024-10-08 06:00 | Outpatient (RCR) | payer MEDICARE, MEDICAID, SELFPAY | END 2024-10-13 23:59 | disposition home or self-care (01) | LOC: TPT 06:00 | PROVIDERS: Visit Provider Nurse Practitioner Family | DX: M54.50 Low back pain, unspecified (principal); G89.29 Other chronic pain | CPT/HCPCS: 97110 ==

== ENCOUNTER → 2024-12-13 08:24 | Outpatient (BNVA) | payer MEDICAID, SELFPAY | PROVIDERS: Visit Provider Surgery | DX: K21.9 Gastro-esophageal reflux disease without esophagitis (principal) | CPT/HCPCS: 99204 ==

== ENCOUNTER 2025-01-04 09:36 | Day surgery (SDC) | payer MEDICARE, MEDICAID, SELFPAY ==
--- NOTE | 2025-01-04 09:52 | P.HPUD_ITS ---
Surgery/Procedure H&P Update DATE OF PROCEDURE: January 04, 2025 DATE H&P PERFORMED: 12/14/24 H&P UPDATE INFORMATION: I have reviewed H&P completed within last 30 days, I have examined patient prior to procedure, No changes to prior documentation and H&P is in [facility] [place] EMR on date indicated PLANNED PROCEDURE: Operation Date: 01/04/25 11:00 Proposed Procedures p EGD 03435, 30738, G0121, K21.9, Z12.11(Not Applicable) - Omi Ocasio MD s Colonoscopy(Not Applicable) - Omi Ocasio MD
[2025-01-04 09:58] VITALS: BP 152/83; PULSE 63; RESP 18; TEMP 36.1; O2SAT 98; BMI 25.8
[2025-01-04] MEDS: sodium chloride 0.9% 1,000 ML 30 ML IV (10:11)
--- NOTE | 2025-01-04 10:17 | ANES.PREANE2 ---
Pre-Anesthetic Assessment Height/Weight: Height 1.78 m Weight 81.647 kg Temp Pulse Resp BP Pulse Ox O2 Del Method 97.0 F L 63 18 152/83 98 Room Air 01/04/25 09:58 01/04/25 09:58 01/04/25 09:58 01/04/25 09:58 01/04/25 09:58 01/04/25 09:58 Preop Diagnosis: GERD, Screening colonoscopy Operation Date: 01/04/25 11:00 Proposed Procedures p EGD 09786, 17868, G0121, K21.9, Z12.11(Not Applicable) - Omi Ocasio MD s Colonoscopy(Not Applicable) - Omi Ocasio MD Familial anesthetic complications: none Was Clonidine taken within 24 hours: N/A Last intake: Intake Last Liquid Date 01/03/25 Last Liquid Time 20:00 Last Solid Date 01/02/25 Last Solid Time 20:00 Social Tobacco 1 pack(s) per day 45 pack years Exam alert, oriented x 3, clear to auscultation bilaterally and regular rate & rhythm Airway Submandibular: within normal limits Cervical ROM: within normal limits Mallampati: Class II Comments: Comments: intact Pulmonary Asthma CV/HEM None reported None reported Hepatic None reported GI Gastroesophageal Reflux Disease Metabolic None reported Musc/skel None reported Neuropsych Depression Anesthetic Plan ASA status: 3 Anesthesia: MAC Risk of > 500 ml blood loss (7ml/kg in children): No Medications/Allergies Home Medications ?Medication ?Instructions ?Recorded ?Confirmed ?Last Taken ?Type ergocalciferol (vitamin D2) 1,250 1,250 mcg PO .weekly #12 caps 01/11/24 01/04/25 01/02/25 Rx mcg (50,000 unit) capsule mecobalamin (vitamin B12) 500 mcg 500 mcg PO DAILY 01/21/24 01/04/25 01/02/25 History chewable tablet hydroxyzine HCl 50 mg tablet 50 mg PO QID PRN anxiety/insomnia 09/28/24 01/04/25 01/02/25 Rx #120 tabs diclofenac sodium 75 mg 75 mg PO BID #60 tabs 10/09/24 01/04/25 01/02/25 Rx tablet,delayed release fluoxetine 40 mg capsule 40 mg PO DAILY #30 caps 11/28/24 01/04/25 01/02/25 Rx albuterol sulfate 90 mcg/actuation 2 puff inhalation QID PRN 12/14/24 01/04/25 01/03/25 Rx aerosol inhaler (Ventolin HFA) shortness of breath or wheezing #6.7 grams tizanidine 4 mg tablet 4 mg PO Q8H PRN Muscle Spasticity 01/02/25 01/04/25 01/02/25 History Allergies Allergy/AdvReac Type Severity Reaction Status Date / Time No Known Allergies Allergy Verified 01/04/25 09:55 Current Medications Generic Name Dose Route Start Last Admin Trade Name Freq PRN Reason Stop Dose Admin Sodium Chloride 1,000 mls @ 30 mls/hr 01/04/25 10:15 01/04/25 10:11 Sodium Chloride 0.9% IV 30 mls/hr .Q24H CORY Administration PFSH Anesthesia Medical History Psychiatric care Social History Smoking and tobacco/nicotine status: current every day tobacco/nicotine user cigarettes Packs smoked per day: 0.5 Years cigarettes smoked: 40 Quit status (tobacco/nicotine): not considering quitting Alcohol intake: former Substance/Drug Use: former Date of last use: NOV 2022 Data Anesthesia Cardiac Studies: No Data to Display
[2025-01-04 10:52] VITALS: BP 102/65; PULSE 52; RESP 14; TEMP 36.4; O2SAT 98
[2025-01-04 11:02] VITALS: BP 117/71; PULSE 61; RESP 16; O2SAT 98
--- NOTE | 2025-01-04 11:30 | ANE.PACU2 ---
Inpatient post-anesthesia follow up: Airway intact: Yes Vital signs: Temperature 97.6 F Pulse Rate 61 Respiratory Rate 16 Blood Pressure 117/71 Pulse Oximetry 98 Oxygen Delivery Me thod Room Air Oxygen Flow Rate Fraction of Inspir ed Oxygen Hydration adequate: Yes Nausea and vomiting: No Pain level: 1 Mental status: Baseline
== END 2025-01-04 11:30 | disposition home or self-care (01) ==
PROVIDERS: PCP Nurse Practitioner Family; Visit Provider Surgery
PROC: 0DJ08ZZ Inspection of Upper Intestinal Tract, Via Natural or Artificial Opening Endoscopic (ICD-10-PCS; principal; 2025-01-04 11:00)
PROC: 0DJD8ZZ Inspection of Lower Intestinal Tract, Via Natural or Artificial Opening Endoscopic (ICD-10-PCS; CPT 45378; 2025-01-04 11:00)
DX: Z12.11 Encounter for screening for malignant neoplasm of colon (principal); K63.5 Polyp of colon; K62.1 Rectal polyp; K29.50 Unspecified chronic gastritis without bleeding; K57.30 Diverticulosis of large intestine without perforation or abscess without bleeding; K21.9 Gastro-esophageal reflux disease without esophagitis; Z79.899 Other long term (current) drug therapy; F32.A Depression, unspecified; F17.210 Nicotine dependence, cigarettes, uncomplicated
CPT/HCPCS: 43239; 45380; 45385; 88305; 88342; J2704; J7030

== ENCOUNTER 2025-01-06 06:42 | Outpatient (RCR) | payer MEDICARE, MEDICAID, SELFPAY | END 2025-02-05 23:59 | disposition home or self-care (01) | LOC: TPT 06:42 | PROVIDERS: Visit Provider Nurse Practitioner Family | DX: M25.511 Pain in right shoulder (principal); M25.512 Pain in left shoulder; G89.29 Other chronic pain | CPT/HCPCS: 97110; 97162 ==

== ENCOUNTER → 2025-01-16 09:24 | Outpatient (BNVA) | payer MEDICARE, MEDICAID, SELFPAY | PROVIDERS: PCP Nurse Practitioner Family; Visit Provider Surgery | DX: Z09 Encounter for follow-up examination after completed treatment for conditions other than malignant neoplasm (principal) | CPT/HCPCS: 99213 ==

== ENCOUNTER 2025-02-06 06:00 | Outpatient (RCR) | payer MEDICARE, MEDICAID, SELFPAY | END 2025-03-07 23:59 | disposition home or self-care (01) | LOC: TPT 06:00 | PROVIDERS: Visit Provider Nurse Practitioner Family | DX: M25.512 Pain in left shoulder (principal); M25.511 Pain in right shoulder; G89.29 Other chronic pain | CPT/HCPCS: 97110; 97140 ==

== ENCOUNTER 2025-03-08 05:00 | Outpatient (RCR) | payer MEDICARE, MEDICAID, SELFPAY | END 2025-04-07 23:59 | disposition home or self-care (01) | LOC: TPT 05:00 | PROVIDERS: PCP Nurse Practitioner Family; Visit Provider Nurse Practitioner Family | DX: M25.511 Pain in right shoulder (principal); M25.512 Pain in left shoulder; G89.29 Other chronic pain | CPT/HCPCS: 97110; 97140 ==

== ENCOUNTER 2025-04-08 05:00 | Outpatient (RCR) | payer MEDICARE, MEDICAID, SELFPAY | END 2025-05-07 06:55 | disposition home or self-care (01) | LOC: TPT 05:00 | PROVIDERS: PCP Nurse Practitioner Family; Visit Provider Nurse Practitioner Family | DX: M25.511 Pain in right shoulder (principal); M25.512 Pain in left shoulder; G89.29 Other chronic pain | CPT/HCPCS: 97110; 97140 ==

== ENCOUNTER → 2025-05-22 08:26 | Outpatient (BNVA) | payer MEDICARE, MEDICAID, SELFPAY | PROVIDERS: PCP Nurse Practitioner Family; Visit Provider Nurse Practitioner Family | DX: R05.9 Cough, unspecified (principal) | CPT/HCPCS: 71046 ==

== ENCOUNTER → 2025-05-25 09:27 | Outpatient (BNVA) | payer MEDICARE, MEDICAID, SELFPAY | PROVIDERS: PCP Nurse Practitioner Family; Visit Provider Nurse Practitioner Family | DX: J40 Bronchitis, not specified as acute or chronic (principal); R05.9 Cough, unspecified; M47.814 Spondylosis without myelopathy or radiculopathy, thoracic region | CPT/HCPCS: 71046; 80053; 85025 ==

== ENCOUNTER → 2025-07-23 13:17 | Outpatient (BNVA) | payer MEDICARE, MEDICAID, SELFPAY | PROVIDERS: PCP Nurse Practitioner Family; Visit Provider Nurse Practitioner Family | DX: M25.512 Pain in left shoulder (principal); M25.511 Pain in right shoulder | CPT/HCPCS: 73030 ==